=== PATIENT | female | born 1950 ===

== ENCOUNTER 2024-02-18 15:49 | Outpatient (REF) | payer MEDICARE, SELFPAY ==
[2024-02-18 15:57] LABS: HCT 30.4 % (36.0-46.0); HGB 9.1 g/dL (11.2-15.7); MCH 26.1 pg (27.0-33.0); MCHC 29.9 % (32.0-36.0); MCV 87 fL (80-95); MPV 10.2 fL (8.0-11.0); Platelet Count 262 10^3/uL (130-400); RBC 3.48 10^6/uL (3.93-5.22); WBC 7.28 10^3/uL (4.4-10.8)
[2024-02-18 16:18] LABS: ALT 26 U/L (14-59); AST 18 U/L (15-37); Albumin 3.2 g/dL (3.4-5.0); Alkaline Phosphatase 116 U/L (46-116); Anion Gap 10.6 mmol/L (3-11); BUN 38 mg/dL (7-18); Bilirubin, Total 0.3 mg/dL (0.2-1.0); CO2 24.4 mmol/L (21.0-32.0); Calcium 8.6 mg/dL (8.5-10.1); Chloride 108 mmol/L (98-107); Estimated GFR 59.86 (mL/min/1.73m2); Glucose 107 mg/dL (74-106); Magnesium 2.1 mg/dL (1.8-2.4); Potassium 5.1 mmol/L (3.5-5.1); Sodium 143 mmol/L (136-145); TSH 3.36 uIU/Ml (0.36-3.74)
== END 2024-02-18 15:50 | disposition home or self-care (01) ==
LOC: LBN 15:49
PROVIDERS: Referring Provider Physician Assistant Medical; Visit Provider Physician Assistant Medical
DX: I48.20 Chronic atrial fibrillation, unspecified (principal); I50.32 Chronic diastolic (congestive) heart failure
CPT/HCPCS: 80053; 85027; 83735; 84443

== ENCOUNTER 2024-06-09 15:48 | Outpatient (REF) | payer MEDICARE, SELFPAY ==
[2024-06-09 16:01] LABS: Bilirubin Negative (Negative); Blood Negative (Negative); Clarity Cloudy (Clear); Glucose Negative (Negative); Ketones Negative (Negative); Leukocyte Esterase Large (Negative); Nitrite Negative (Negative); Specific Gravity 1.015 (1.005-1.025); Urobilinogen 0.2 mg/dL (Up to 0.2)
[2024-06-09 16:10] LABS: Bacteria Many HPF (Negative); C & S Indicated? C&S Done As Ordered; Casts Negative LPF (Negative); Crystals Negative HPF (Negative); Epithelial Cells Few HPF (Negative); Mucus Negative (Negative); RBC 0-2 HPF (0-2); WBC 20-50 HPF (0-5)
== END 2024-06-09 15:49 | disposition home or self-care (01) ==
LOC: LBN 15:48
DX: N39.0 Urinary tract infection, site not specified (principal); B96.89 Other specified bacterial agents as the cause of diseases classified elsewhere
CPT/HCPCS: 87077; 81003; 81015; 87086; 87186